=== PATIENT | male | born 2000 | race Caucasian/White ===

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

== ENCOUNTER 2020-03-30 01:56 | Emergency (ER) | payer OTHER ==
[~2020-03-30] VITALS: Ht 182.9 cm; Wt 79.5 kg
[2020-03-30 02:02] VITALS: BP 128/72; TEMP 99.8
[2020-03-30 02:41] LABS: STREP SCREEN POSITIVE
[2020-03-30 03:14] VITALS: PULSE 67
== END 2020-03-30 03:14 | disposition home or self-care (01) ==
LOC: COL.ER → EDBD 01:59 → COL.ER 03:14
PROVIDERS: Emergency Medicine
DX: J02.0 Streptococcal pharyngitis (principal); R06.00 Dyspnea, unspecified; Z20.828 Contact with and (suspected) exposure to other viral communicable diseases
CPT/HCPCS: J0561

== ENCOUNTER 2020-11-05 14:49 | Emergency (ER) | payer SELFPAY ==
[~2020-11-05] VITALS: Ht 182.9 cm; Wt 77.3 kg
[2020-11-05 15:00] VITALS: TEMP 98.2
[2020-11-05 16:25] VITALS: BP 134/84; PULSE 53
[2020-12-22] MEDS ORDERED: CRUTCHES MC (21:29)
== END 2020-11-05 16:26 | disposition home or self-care (01) ==
LOC: COL.ER 14:49
DX: J06.9 Acute upper respiratory infection, unspecified (principal); Z20.822 Contact with and (suspected) exposure to COVID-19

== ENCOUNTER → 2020-12-22 | Emergency (ER) | payer SELFPAY ==
[~2020-12-22] VITALS: Ht 180.3 cm; Wt 77.3 kg
[~2020-12-22] MED LIST: CRUTCHES MC
[2020-12-22 20:05] VITALS: BP 119/70; PULSE 76; TEMP 98
== END ==
LOC: COL.ER 20:02
DX: S82.302A Unspecified fracture of lower end of left tibia, initial encounter for closed fracture (principal); V00.131A Fall from skateboard, initial encounter; Y93.51 Activity, roller skating (inline) and skateboarding

== ENCOUNTER 2021-12-29 14:11 | Emergency (ER) | payer SELFPAY ==
[~2021-12-29] VITALS: Ht 180.3 cm; Wt 75.0 kg
[2021-12-29 14:20] VITALS: TEMP 97.8
[2021-12-29 15:00] VITALS: BP 128/78; PULSE 62
== END 2021-12-29 15:00 | disposition home or self-care (01) ==
LOC: COL.ER 14:11
DX: S93.602A Unspecified sprain of left foot, initial encounter (principal); Z28.310 Unvaccinated for COVID-19; X58.XXXA Exposure to other specified factors, initial encounter

== ENCOUNTER 2023-11-11 18:59 | Emergency (ER) | payer SELFPAY ==
[~2023-11-11] VITALS: Ht 182.9 cm; Wt 75.0 kg
[~2023-11-11 18:59] MED LIST changes: +PRILOSEC 20MG20 MG PO
[2023-11-11 19:08] VITALS: TEMP 98.4
[2023-11-11] MEDS ORDERED: NS 1,000 ML IV ONE (19:30)
[2023-11-11] MEDS ORDERED: Ketorolac 30 MG/ML VIAL IV ONE (19:30)
[2023-11-11] MEDS ORDERED: Ondansetron 4 MG/2 ML VIAL IV ONE (19:30)
[2023-11-11 19:39] LABS: BASO % 0.5 % (0.0-2.0); EOS # 0.1 K/mm3 (0.0-0.7); EOS % 1.7 % (0.0-4.0); GRAN # 4.2 K/mm3 (1.4-6.5); GRAN % 65.8 % (42.2-75.2); HEMATOCRIT 41.6 % (42.0-52.0); HEMOGLOBIN 15.1 g/dl (13.5-18.0); LYMPH # 1.7 K/mm3 (1.2-3.4); LYMPH % 26.3 % (20.0-51.0); MEAN CELL VOLUME 87 fl (80.0-100.0); MEAN CORPUSCULAR HEMOGLOBIN 32 pg (27-31); MEAN CORPUSCULAR HGB CONC 36 g/dl (33.0-37.0); MEAN PLATELET VOLUME 10.2 fl (7.4-10.4); MONO # 0.4 K/mm3 (0.1-0.6); MONO % 5.5 % (1.7-9.3); PLATELET COUNT 227 K/mm3 (130-400); RED BLOOD COUNT 4.76 M/mm3 (4.20-5.60); REDCELL DISTRIBUTION WIDTH-CV 11.9 % (11.5-14.5)
[2023-11-11 19:58] LABS: ALBUMIN 4.3 g/dL (3.5-5.0); CALCIUM 9.4 mg/dL (8.4-10.2); CREATININE, serum 1.24 mg/dL (0.72-1.25); POTASSIUM 3.9 mEq/L (3.5-4.5); TOTAL PROTEIN 7.4 g/dl (6.2-8.1)
[2023-11-11] MEDS ORDERED: Iohexol 300 - 100 ML VIAL IV ONE (20:01)
[2023-11-11] MEDS ORDERED: NS 100 ML IV ONE (20:02)
[2023-11-11 20:07] LABS: BILIRUBIN,TOTAL 0.8 mg/dL (0.2-1.2)
[2023-11-11] MEDS ORDERED: BENTYL 20MG20 MG/TAB PO (20:42)
[2023-11-11 21:06] VITALS: BP 120/76; PULSE 59
== END 2023-11-11 21:11 | disposition home or self-care (01) ==
LOC: COL.ER 18:59
PROVIDERS: Physician Assistant
DX: R10.11 Right upper quadrant pain (principal); Z90.49 Acquired absence of other specified parts of digestive tract
CPT/HCPCS: J1885; J2405; J7030; Q9967